=== PATIENT | male | born 1975 | race Caucasian/White ===

== ENCOUNTER 2022-12-11 21:42 | Emergency (ER) | payer OTHER ==
[2022-12-11 21:56] VITALS: BMI 30.8
[2022-12-11] MEDS ORDERED: LIDOCAINE PATCH REMOVAL MC SCH (22:00)
[2022-12-11] MEDS ORDERED: ACETAMINOPHEN 1000 MG/100 ML BAG IVPB ONE (22:15)
[2022-12-11] MEDS ORDERED: LIDOCAINE 5% TOPICAL PATCH TP ONE (22:15)
[2022-12-11 23:20] LABS: BASO % 0.9 % (0-2.0); EOS % 2.1 % (0-4.5); HEMATOCRIT 48.1 % (35.4-49); HEMOGLOBIN 16.6 GM/dL (11.7-16.9); MCH 33.8 pg (25.7-33.7); MCHC 34.6 g/dl (32.0-35.9); MEAN CELL VOLUME 97.9 fl (80-96); MEAN PLT VOLUME 7.3 fl (7.5-11.1); PLATELET COUNT 199 10^3/uL (134-434); RBC 4.91 M/mm3 (4.00-5.60); RDW 13.8 % (11.9-15.9); WHITE BLOOD COUNT 9.1 K/mm3 (4.0-10.0)
[2022-12-11 23:42] LABS: CALCIUM 8.9 mg/dL (8.5-10.1)
[2022-12-11 23:43] LABS: ALBUMIN 3.9 g/dl (3.4-5.0); BLOOD UREA NITROGEN 4.6 mg/dL (7-18)
[2022-12-11 23:46] LABS: CREATININE 0.9 mg/dL (0.55-1.3)
[2022-12-11 23:47] LABS: BILIRUBIN,TOTAL 0.9 mg/dL (0.2-1); TOT PROT 7.6 g/dl (6.4-8.2)
[2022-12-12 01:43] VITALS: BP 150/98; PULSE 83; RESP 16; TEMP 98
== END 2022-12-12 02:23 | disposition home or self-care (01) ==
LOC: JER 21:42
PROC: 3E033NZ Introduction of Analgesics, Hypnotics, Sedatives into Peripheral Vein, Percutaneous Approach (ICD-10-PCS; principal; 2022-12-11)
DX: R07.89 Other chest pain (principal); R06.02 Shortness of breath; Z20.822 Contact with and (suspected) exposure to COVID-19
CPT/HCPCS: 0241U-QW; 36415; 71045-TC-FY; 80053; 84484; 85025; 93005; 93010; 99285-25